=== PATIENT | female | born 1950 | race Caucasian/White ===

== ENCOUNTER 2016-11-17 09:28 | Emergency (ER) | payer BC ==
[~2016-11-17] VITALS: Ht 165.1 cm; Wt 71.8 kg
[~2016-11-17 09:28] MED LIST: ESTR1PAT10; LEVO50TA5 PO; OMEP20CA9 PO; RIZA10TA20 PO; TRAZ50TA18; [UNRECOGNIZED DRUG - OTHER]
[2016-11-17 09:30] VITALS: BP 103/69
[2016-11-17] MEDS ORDERED: DIPH,PERTUSS(ACELL),TET VAC/PF 0.5 ML IM-VACC ONE ×2 (10:16→10:30)
[2016-11-17] MEDS ORDERED: LIDOCAINE 1%, 20ML ONE (10:16)
[2016-11-17] MEDS ORDERED: LIDOCAINE 1%, 20ML SQ ONE (10:30)
== END 2016-11-17 12:16 | disposition home or self-care (01) ==
LOC: ED 11:25
DX: S01.81XA Laceration without foreign body of other part of head, initial encounter (principal); S00.33XA Contusion of nose, initial encounter; S80.212A Abrasion, left knee, initial encounter; S80.211A Abrasion, right knee, initial encounter; W01.0XXA Fall on same level from slipping, tripping and stumbling without subsequent striking against object, initial encounter; Y93.89 Activity, other specified; Y99.8 Other external cause status; Y92.410 Unspecified street and highway as the place of occurrence of the external cause
CPT/HCPCS: 12011; 70450; 70486; 90471; 90715

== ENCOUNTER → 2017-01-26 | Outpatient (CLI) | payer BC | END | disposition home or self-care (01) | LOC: CFH 14:27 | PROVIDERS: ATTEND Internal Medicine Cardiovascular Disease | DX: Z13.6 Encounter for screening for cardiovascular disorders (principal); E78.00 Pure hypercholesterolemia, unspecified; R07.89 Other chest pain | CPT/HCPCS: 75571 ==

== ENCOUNTER → 2017-01-27 | Outpatient (CLI) | payer BC | END | disposition home or self-care (01) | LOC: CVU 13:31 | PROVIDERS: ATTEND Internal Medicine Cardiovascular Disease | DX: I65.21 Occlusion and stenosis of right carotid artery (principal); E78.5 Hyperlipidemia, unspecified | CPT/HCPCS: 93306; 93880 ==

== ENCOUNTER → 2020-01-15 | Outpatient (CLI) | payer MEDICARE ==
[~2020-01-15] MED LIST changes: -TRAZ50TA18; +TRAZ50TA66
[2020-01-15 13:42] LABS: ALBUMIN 3.9 g/dL (3.4-5.0); CHLORIDE 106 mmol/L (98-107)
[2020-01-15 13:57] LABS: ALANINE AMINOTRANSFERASE 33 U/L (12-78); ALKALINE PHOSPHATASE 75 U/L (45-117); ANION GAP 5 mmol/L (5-15); BILIRUBIN,TOTAL 0.7 mg/dL (0.2-1.0); CALCIUM 9.7 mg/dL (8.5-10.1); CHOL/HDL RATIO 5.2; CHOLESTEROL, TOTAL 273 mg/dL (140-239); CREATININE 0.94 mg/dL (0.55-1.02); HDL CHOL % 19 % (28-40); HDL CHOLESTEROL (DIRECT) 53 mg/dL (40-60); LDL CHOLESTEROL,CALCULATED 188 mg/dL (54-169); LDL/HDL RATIO 3.5 (0.5-3.0); TOTAL PROTEIN 7.4 g/dL (6.4-8.2); TRIGLYCERIDES 159 mg/dL (50-200); VLDL CHOLESTEROL 32 mg/dL (0-25)
== END | disposition home or self-care (01) ==
LOC: CFH 06:42
PROVIDERS: ATTEND Family Medicine
DX: R53.82 Chronic fatigue, unspecified (principal); N18.9 Chronic kidney disease, unspecified; E78.00 Pure hypercholesterolemia, unspecified; E66.3 Overweight
CPT/HCPCS: 36415; 80053; 80061; 82306; 84443

== ENCOUNTER 2020-05-06 12:21 | Emergency (ER) | payer MEDICARE ==
[~2020-05-06] VITALS: Ht 165.1 cm; Wt 75.3 kg
[2020-05-06 13:10] LABS: BASOPHILS % (AUTO) 1 % (0-1); EOSINOPHILS % (AUTO) 2 % (1-7); LYMPHOCYTES % (AUTO) 18 % (22-44); MEAN CORPUSCULAR HEMOGLOBIN 31.1 pg (27.0-34.8); MEAN CORPUSCULAR HGB CONC 34.4 g/dL (32.4-35.8); MEAN PLATELET VOLUME 9.1 fL (7.4-10.4); MONOCYTES % (AUTO) 9 % (2-9); NEUTROPHILS % (AUTO) 71 % (42-75); PLATELET COUNT 399 x10^3/uL (130-400); RED BLOOD COUNT 4.81 x10^6/uL (3.82-5.3); RED CELL DISTRIBUTION WIDTH 12.5 % (9.6-15.2)
[2020-05-06 13:25] LABS: ALANINE AMINOTRANSFERASE 46 U/L (12-78); ALBUMIN 3.3 g/dL (3.4-5.0); ANION GAP 4 mmol/L (5-15); CALCIUM 9.2 mg/dL (8.5-10.1); CHLORIDE 106 mmol/L (98-107); CREATININE 1.06 mg/dL (0.55-1.02)
[2020-05-06 13:28] LABS: ALKALINE PHOSPHATASE 104 U/L (45-117); BILIRUBIN,TOTAL 0.6 mg/dL (0.2-1.0); TOTAL PROTEIN 7.7 g/dL (6.4-8.2)
[2020-05-06 13:52] LABS: TROPONIN I < 0.015 ng/mL (0.000-0.045)
[2020-05-06 14:28] VITALS: BP 131/84
--- NOTE | 2020-05-06 14:28 | NUR ---
HAJA RN: CALLED PT TO REVITAL, NO NEW C.O
[2020-05-06 15:39] LABS: MD SCAN
--- NOTE | 2020-05-06 20:29 | NUR ---
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 MD HOWE CONFIRMED THAT PATIENT WAS DISCHARGED.
== END 2020-05-06 17:38 | disposition home or self-care (01) ==
LOC: ED 17:00
DX: U07.1 COVID-19 (principal); J15.9 Unspecified bacterial pneumonia; J02.9 Acute pharyngitis, unspecified; R07.89 Other chest pain; R06.02 Shortness of breath; R42 Dizziness and giddiness; M54.9 Dorsalgia, unspecified; Z87.891 Personal history of nicotine dependence; Z86.39 Personal history of other endocrine, nutritional and metabolic disease
CPT/HCPCS: 36415; 71045; 80053; 84484; 85025; 93005; 99285

== ENCOUNTER 2020-05-28 10:01 | Observation (INO) | payer MEDICARE ==
[~2020-05-28] VITALS: Ht 165.1 cm; Wt 79.0 kg
--- NOTE | 2020-05-28 10:21 | NUR ---
THIS IS A 69 YO F W/ C/O NEW GRADUAL ONSET CP DESCRIBED HEAVINESS AND SOB X2 DAYS. PT REPORTS NO AGGRAVATING OR RELIEVING FACTORS, NO RADIATION. PT REPORTS WAS +COVID ON 05/19/[address] [facility]. PT REPORTS THOSE SYPMTOMS RESOLVED. PT RESTING ON [employer] TV W/ CALL LIGHT IN REACH AND SIDE RAILS UPX2. ANIBAL, IRMA. AWAITING ED EVAL.
[2020-05-28 10:55] LABS: BASOPHILS % (AUTO) 1 % (0-1); EOSINOPHILS % (AUTO) 3 % (1-7); LYMPHOCYTES % (AUTO) 28 % (22-44); MD NO; MEAN CORPUSCULAR HEMOGLOBIN 31.2 pg (27.0-34.8); MEAN CORPUSCULAR HGB CONC 34.1 g/dL (32.4-35.8); MEAN PLATELET VOLUME 8.7 fL (7.4-10.4); MONOCYTES % (AUTO) 11 % (2-9); NEUTROPHILS % (AUTO) 57 % (42-75); PLATELET COUNT 248 x10^3/uL (130-400); RED BLOOD COUNT 4.75 x10^6/uL (3.82-5.3); RED CELL DISTRIBUTION WIDTH 13.7 % (9.6-15.2)
[2020-05-28 11:07] LABS: ALANINE AMINOTRANSFERASE 84 U/L (12-78); ALBUMIN 3.6 g/dL (3.4-5.0); ANION GAP 5 mmol/L (5-15); CALCIUM 9.1 mg/dL (8.5-10.1); CHLORIDE 109 mmol/L (98-107); CREATININE 1.05 mg/dL (0.55-1.02)
[2020-05-28 11:12] LABS: ALKALINE PHOSPHATASE 73 U/L (45-117); BILIRUBIN,TOTAL 0.5 mg/dL (0.2-1.0); TOTAL PROTEIN 6.8 g/dL (6.4-8.2); TROPONIN I < 0.015 ng/mL (0.000-0.045)
--- NOTE | 2020-05-28 11:15 | NUR ---
ALL TESTS RESULTED. PT IS UP FOR RECHECK AT THIS TIME.
--- NOTE | 2020-05-28 11:20 | NUR ---
BREAK RN: PT SITTING UP ON GURNEY AWAKE & COMFORTABLE, READING HER BOOK, NAD, NO NEEDS AT THIS TIME, CALL LIGHT WITHIN REACH.
[2020-05-28] MEDS ORDERED: ASPIRIN 81 MG TABLET CHEW PO ONE (13:00)
--- NOTE | 2020-05-28 13:00 | NUR ---
REPORT GIVEN TO ALEXYS.
[2020-05-28] MEDS ORDERED: ASPIRIN 81 MG TABLET CHEW ONE (13:04)
[2020-05-28] MEDS ORDERED: OMEP20TA62 PO (13:11)
[2020-05-28] MEDS ORDERED: LATA2.5D4 EACHEYE (13:11)
--- NOTE | 2020-05-28 13:22 | NUR ---
CARE OF PT ASSUMED, PT MEDICATED PER MAR, PIV INITIATED. PT AMBULATED TO WITH STEADY GAIT, BACK TO [facility] AT THIS TIME, PT TO ALL MONITORS
[2020-05-28] MEDS ORDERED: NITROGLYCERIN 0.4 MG BOTTLE (25 TABS) SL PRN (13:30)
[2020-05-28] MEDS: ENOXAPARIN 40 MG/0.4 ML SQ SCH (13:30)
[2020-05-28] MEDS ORDERED: ACETAMINOPHEN 325 MG TABLET PO PRN (13:30)
[2020-05-28] MEDS ORDERED: ONDANSETRON ODT 4 MG PO PRN (13:30)
[2020-05-28] MEDS ORDERED: TRAZODONE 50MG TABLET PO PRN (13:30)
--- NOTE | 2020-05-28 14:22 | NUR ---
DIET TRAY ORDERED
[2020-05-28 14:28] LABS: TROPONIN I < 0.015 ng/mL (0.000-0.045)
[2020-05-28] MEDS ORDERED: ENOXAPARIN 40 MG/0.4 ML ONE (16:35)
--- NOTE | 2020-05-28 16:42 | NUR ---
PT GIVEN MEAL TRAY AT THIS TIME, NAD, VSS
--- NOTE | 2020-05-28 18:52 | NUR ---
REPORT TO ESTEFANÍA COKER
--- NOTE | 2020-05-28 19:19 | NUR ---
Patient transferred to hospital bed for comfort. Patient denies any complaints at this time.
[2020-05-28 19:41] LABS: TROPONIN I < 0.015 ng/mL (0.000-0.045)
[2020-05-28] MEDS: OMEPRAZOLE 20 MG CAPSULE.DR PO SCH (20:37)
[2020-05-28] MEDS ORDERED: LATANOPROST OPHTH 0.005%, 2.5ML EACHEYE SCH (21:00)
--- NOTE | 2020-05-29 00:36 | NUR ---
Patient resting, unlabored, even resp. Offers no complaints. VSS. Patient on cafeteria monitor
--- NOTE | 2020-05-29 03:27 | NUR ---
Patient noted to be resting. Unlabored, easy respiration, noted to be NSR on the cardiac rehabilitation specialist. Call light within reach. Bed in low position
[2020-05-29 05:30] VITALS: BP 109/68
[2020-05-29 05:31] LABS: CHOL/HDL RATIO 4.9; LDL/HDL RATIO 3.4 (0.5-3.0)
[2020-05-29] MEDS ORDERED: ASPIRIN 325 MG TABLET EC PO SCH ×2 (06:00→09:00)
[2020-05-29] MEDS: OMEPRAZOLE 20 MG CAPSULE.DR PO SCH (08:00)
--- NOTE | 2020-05-29 08:31 | NUR ---
PHONE REPORT TO JOHN PAUL BAÑUELOS
[2020-05-29] MEDS ORDERED: LEVOTHYROXINE 50 MCG TABLET PO SCH ×2 (09:00)
[2020-05-29] MEDS ORDERED: ASPI-515 PO (13:30)
[2020-05-29] MEDS ORDERED: ROSU5TAB PO (13:30)
[2020-05-29] MEDS: ENOXAPARIN 40 MG/0.4 ML SQ SCH (13:30)
== END 2020-05-29 14:32 | disposition home or self-care (01) ==
LOC: ED 11:31 → INTOOBSV 14:25 → EDIP 14:25 → 4EST 05-29 08:58
PROVIDERS: ADMIT Family Medicine; ATTEND Family Medicine
DX: R07.89 Other chest pain (principal); Z20.828 Contact with and (suspected) exposure to other viral communicable diseases; B34.9 Viral infection, unspecified; J06.9 Acute upper respiratory infection, unspecified; E03.9 Hypothyroidism, unspecified; H40.9 Unspecified glaucoma; K21.9 Gastro-esophageal reflux disease without esophagitis; E78.5 Hyperlipidemia, unspecified; Z88.0 Allergy status to penicillin; Z79.899 Other long term (current) drug therapy
CPT/HCPCS: 36415; 71045; 80053; 80061; 84484; 85025; 85379; 93005; 99285; G0378; U0003

== ENCOUNTER → 2020-06-04 | Outpatient (CLI) | payer MEDICARE ==
[~2020-06-04] MED LIST changes: +ASPI-515 PO; +LATA2.5D4 EACHEYE; +OMEP20TA62 PO; +REGADENOSON 0.4 MG/5 ML SYRINGE ONE; +ROSU5TAB PO
== END | disposition home or self-care (01) ==
LOC: CFH 12:31
PROVIDERS: ATTEND Internal Medicine
DX: R07.9 Chest pain, unspecified (principal); E78.9 Disorder of lipoprotein metabolism, unspecified
CPT/HCPCS: 78452; 93017; A9502; J2785